=== PATIENT | female | born 1930 | race Caucasian/White ===

== ENCOUNTER → 2016-08-22 15:58 | Outpatient (CLI) | payer MEDICARE, OTHER | END | disposition home or self-care (01) | LOC: D.US 15:58 | DX: R60.0 Localized edema (principal); M79.662 Pain in left lower leg ==

== ENCOUNTER 2018-10-19 08:22 | Inpatient (IN) | payer MEDICARE, OTHER ==
[~2018-10-19] VITALS: Ht 149.9 cm; Wt 44.5 kg
[2018-10-19] MEDS ORDERED: SYNTHROID150 MCG PO (08:39)
[2018-10-19] MEDS ORDERED: TRAZODONE HCL150 MG PO (08:39)
[2018-10-19] MEDS ORDERED: AMBIEN5 MG PO (08:40)
--- NOTE | 2018-10-19 09:13 | NUR ---
URINE SPECIMEN OBTAINED LABELED AT BS AND SENT TO LAB
[2018-10-19 09:17] LABS: BASOPHILS 0.5 % (0-2); EOSINOPHILS 0.7 % (0-7); HEMATOCRIT 38.2 % (36.0-48.0); HEMOGLOBIN 12.9 g/dL (12-16); LYMPHOCYTES 24.2 % (15-50); MCH 30.3 pg (26.0-34.0); MCHC 33.8 g/dL (31.0-37.0); MCV 89.7 fL (80.0-100.0); MEAN PLATELET VOLUME 9.2 fL (7.4-10.4); MONOCYTES 11.6 % (2-11); PLATELET COUNT 264 10x3/uL (130-400); RBC 4.26 10x6/uL (4.00-5.40); RDW 14.8 % (11.5-14.5); WBC 5.5 10x3/uL (4.8-10.8)
[2018-10-19 09:24] LABS: APPEARANCE CLEAR (CLEAR); BILIRUBIN NEGATIVE (NEGATIVE); COLOR YELLOW (YELLOW); GLUCOSE NEGATIVE (NEGATIVE); KETONE NEGATIVE (NEGATIVE); NITRITE POSITIVE (NEGATIVE); PROTEIN NEGATIVE (NEGATIVE); SPECIFIC GRAVITY 1.005 (1.005-1.020); UROBILINOGEN NORMAL (NORMAL)
[2018-10-19 09:27] LABS: BACTERIA MANY /hpf (NONE SEEN); EPITHELIAL CELLS 0-5 /hpf (0-5)
[2018-10-19 09:28] LABS: MUCUS <1+ /lpf (NONE SEEN); RED CELLS - URINE 0-5 /hpf (0-5); WHITE CELLS - URINE 0-5 /hpf (0-5)
[2018-10-19 09:30] LABS: ALBUMIN 3.8 g/dL (3.4-5.0); BILIRUBIN - TOTAL 1.02 mg/dL (0.2-1.3); CALCIUM 9.2 mg/dL (8.5-10.1); CARBON DIOXIDE 32.9 mmol/L (21.0-32.0); CREATININE - SERUM 0.9 mg/dL (0.6-1.3); POTASSIUM - SERUM 3.9 mmol/L (3.5-5.1); PROTEIN - SERUM 7.5 g/dL (6.4-8.2)
[2018-10-19 10:30] VITALS: BP 137/86
--- NOTE | 2018-10-19 11:39 | NUR ---
SL PLACED AND BC'S DRAWN
[2018-10-19 12:15] VITALS: BP 140/81
[2018-10-19 13:45] VITALS: BP 134/82
--- NOTE | 2018-10-19 13:45 | NUR ---
PT TRANSPORTED TO FLOOR STABLE.
--- NOTE | 2018-10-19 13:45 | NUR ---
REPORT CALLED TO JESUSITA ADDISON BY SBAR FORMAT
[2018-10-19 13:58] VITALS: BP 157/75; BMI 19.8
--- NOTE | 2018-10-19 14:17 | NUR ---
PATIENT ADMITTED TO ROOM 2208. ALERT AND ORIENTED X 3. LUNGS CLEAR BILATERALLY IN ALL LEVY. HEART SOUNDS S1 AND S2 HEARD IN ALL LEVY. PACEMAKER PRESENT ON RIGHT SIDE. BOWEL SOUNDS ACTIVE X 4. URGENCY OF URINE. CHIEF COMPLAINT OF UTI. IV TO RFA PATENT WITHOUT REDNESS. BED LOW. CALL BILLINGS AND PERSONAL ITEMS IN REACH. DENIES PAIN. DENIES NEEDS. DAUGHTER AT BEDSIDE. WILL CONTINUE TO MONITOR.
--- NOTE | 2018-10-19 14:44 | NUR ---
REQUESTED AIR BE TURNED OFF IN ROOM. AIR TURNED OFF. REQUESTD AND GIVEN SPRITE AND WATER. DENIES FURTHER NEEDS.
--- NOTE | 2018-10-19 15:32 | NUR ---
SITTING IN BED TALKING WITH CARDIOPULMONARY TECHNICIAN AND EEG TECH AND CARDIOPULMONARY TECHNICIAN AND EEG TECH'S . DENIES PAIN. DENIES NEEDS. WILL CONTINUE TO MONITOR.
--- NOTE | 2018-10-19 17:16 | NUR ---
SITTING IN CHAIR AT BEDSIDE. DENIES NEEDS.
--- NOTE | 2018-10-19 18:32 | NUR ---
ECUATION PROVIDED ON LOVENOX INJECTION. PATIENT REFUSED. PATIENT REFUSED PEPCID. WILL CONTINUE TO MONITOR.
[2018-10-19 20:00] VITALS: BP 104/50
[2018-10-20] VITALS: BP 113/66
--- NOTE | 2018-10-20 03:48 | NUR ---
ASSESSED AT HE BEGINNING OF THE SHIFT. PT IS ALERT BUT A LITTLE CONFUSED. SHE HAS HAD TROUBLE WITH HER TV AND BEEN ASSISTED A COUPLE OF TIME. AT ABOUT 2200 SHE ASKED IF SHE HAD A SLEEPING MED. THIS WAS CONFIRMED BUT SHE DID NOT WANT IT AT THAT TIME. AT ABOUT 0130 SHE WAS IN THE HALLWAY COMPLAINING TO ANOTHER NURSE ABOUT THE CONVERSATION SHE COULD HEAR FROM THE ROOM THAT NURSE WAS IN. AT THIS TIME SHE WAS OFFERED HER SLEEPING MED AND SHE DID ACCEPT IT. LATER SHE WAS BACK OUT IN THE HALLWAY STATING THAT SHE COULD HEAR PEOPLE TALKING IN THE ROOM ACROSS FROM HER AND COULD WE TELL THEM TO BE QUIET. AFTER A WHILE SHE STAYED IN HER ROOM AND WATCHED TV. HER COMPLAINT IS THAT SHE HAS NOT SLEPT IN TWO DAYS. WILL CONTINUE TO MONITOR.
[2018-10-20 04:00] VITALS: BP 116/67
[2018-10-20 06:21] LABS: BASOPHILS 0.7 % (0-2); EOSINOPHILS 1.9 % (0-7); HEMATOCRIT 35.5 % (36.0-48.0); HEMOGLOBIN 11.9 g/dL (12-16); IMMATURE GRANULOCYTES 0.2 % (0-5); MCH 29.9 pg (26.0-34.0); MCHC 33.5 g/dL (31.0-37.0); MCV 89.2 fL (80.0-100.0); MEAN PLATELET VOLUME 9.6 fL (7.4-10.4); MONOCYTES 11.5 % (2-11); NEUTROPHILS 57.7 % (40-80); PLATELET COUNT 239 10x3/uL (130-400); RBC 3.98 10x6/uL (4.00-5.40); RDW 14.8 % (11.5-14.5); WBC 5.9 10x3/uL (4.8-10.8)
[2018-10-20 06:53] LABS: ANION GAP 10.4 mmol/L (8-16); CALCIUM 8.7 mg/dL (8.5-10.1); CARBON DIOXIDE 30.4 mmol/L (21.0-32.0); CREATININE - SERUM 0.8 mg/dL (0.6-1.3); POTASSIUM - SERUM 3.8 mmol/L (3.5-5.1)
--- NOTE | 2018-10-20 08:05 | NUR ---
AAOX4. RESTIN IN BED READING BOOK. "I AM READY TO GO HOME. I FEEL GREAT AND I AM WALKING AND NOT DIZZY." NO S/S OF ACUTE DISTRESS. CL IN PLACE.
[2018-10-20 09:43] VITALS: BP 128/66
[2018-10-20 10:02] VITALS: Ht 149.9 cm; Wt 44.5 kg
--- NOTE | 2018-10-20 13:00 | HP ---
PATIENT: DORON MAX MEDICAL RECORD: [id number] ACCOUNT: [id number] LOCATION:D.MS [id number] : 28 ADMISSION DATE: 10/19/18 PCP: CHAVO CARTER MD HISTORY AND PHYSICAL EXAMINATION DATE OF ADMISSION: 10/19/2018. CHIEF COMPLAINT: Confusion. HISTORY OF PRESENT ILLNESS: This is an 87-year-old female who has lived alone since her a couple of years ago. She has been showing signs of altered mental status and dementia. She lives alone. She easily recognizes me when I come into the room. She states that she woke up this morning like she normally dose, but apparently called her daughters because she knew that she was not feeling right. She really was not sure where she was or what to do about anything. One daughter lives in [place] and another daughter lives here in [facility]. The daughter here drove over to her house and saw that she was confused and worried about what next to do. EMS was called. She was brought to the Emergency Department where her lab was unremarkable except for a urinary tract infection. She is admitted for further treatment and evaluation. PAST MEDICAL HISTORY: She has hypothyroidism, osteoporosis, hyperlipidemia, vitamin D deficiency, sick sinus syndrome, remote history of necrotizing fasciitis to the left arm and hand. PAST SURGICAL HISTORY: Hysterectomy, cholecystectomy, carpal tunnel release, pacemaker placement and multiple surgeries to the hand for salvage from the necrotizing fasciitis. CURRENT MEDICATIONS: Zolpidem 5 mg a day. She takes trazodone 50 mg at bedtime and levothyroxine 150 mcg daily. ALLERGIES: BACTROBAN, BENADRYL, BYSTOLIC, DEMEROL, IBUPROFEN, LEVAQUIN, NITROGLYCERIN, AND SULFA DRUGS. HABITS: Former smoker, maybe drinks occasional wine. No illicit drug use. SOCIAL HISTORY: , retired. She lives alone. FAMILY HISTORY: Both parents are . Further history is unknown. REVIEW OF SYSTEMS: GENERAL: She has had some weight loss over the last few months. HEENT: No particular sinus or allergy problems. RESPIRATORY: No history of asthma or emphysema. CARDIAC: She has a history of sick sinus syndrome with pacemaker. GASTROINTESTINAL: No significant problems there. GENITOURINARY: No significant problems there. MUSCULOSKELETAL: She has some osteoporosis, little arthritis. 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 NEUROLOGIC: No migraines. No seizure disorder. Her memory has definitely been declining. I saw her little over a month ago in my office and she drove herself there, but admitted to me that she forgot how to get there and she had to Google it. In talking to her daughter on the phone today, the patient is repeating herself more and more often as well. Family was concerned that this was due to HISTORY AND PHYSICAL [id number] DORON MAX both zolpidem and trazodone at bedtime and it certainly could PHYSICAL EXAMINATION: VITAL SIGNS: Temperature 98.1, pulse 72, respirations 20, and blood pressure 132/71. GENERAL: She is awake and alert. She is sitting in chair in her hospital room. She has eaten most of her supper. She converses but she also realizes that she is not as sharp as she used to be. SKIN: Warm and dry. HEENT: Grossly within normal limits. NECK: Supple. No JVD or bruit. HEART: Regular rate and rhythm. LUNGS: Clear. ABDOMEN: Soft. EXTREMITIES: No edema. Her left hand is in a contracted state chronically for years due to the necrotizing fasciitis. LABORATORY DATA: Urinalysis shows yellow clear urine with 1+ blood, positive nitrite, trace leukocyte esterase and many bacteria. CT of her head shows no acute process. Chest x-ray shows no acute process. CBC and CMP are both normal. Troponin 0.022. ASSESSMENT: 1. Urinary tract infection. 2. Metabolic encephalopathy. 3. Probable underlying dementia. PLAN: IV Rocephin. Urine culture and blood culture. We will monitor her mental status. Other tests and procedures as warranted. TRANSINT:[id number] Voice Confirmation ID: [id number] DOCUMENT ID: [id number] CHAVO CARTER MD at 1300 CC: [id number] DICTATION DATE: 10/19/181834 EXHIBITS CURATOR: 10/19/181911 [facility] IN [facility] [address] [id number]
[2018-10-20] MEDS ORDERED: MACROBID100 MG PO (14:03)
[2018-10-20 14:17] VITALS: BP 128/71
--- NOTE | 2018-10-20 14:31 | MORECARE ---
CASE MANAGEMENT DISCHARGE SUMMARY PATIENT: DORON MAX UNIT: [id number] ADM DATE: 10/19/18 AGE: 87 : 29 SEX: F ROOM/BED: D.2208 AUTHOR: JUAN PINON PHYSICIAN: REFERRING PHYSICIAN: CHAVO CARTER MD DATE OF SERVICE: 10/20/18 Discharge Plan Patient Name: DORON MAX Facility: [facility]:[place] : 1930 Planned Disposition: Home Anticipated Discharge Date: 10/20/18 Discharge Date: Expected LOS: 1 Initial Reviewer: [email or web address] Initial Review Date: 10/20/2018 Generated: 10/20/18 3:30 pm Comments DCP- Discharge Planning Updated by [email or web address]: Tatum Marques on 10/20/18 1:[address] Patient Name: DORON MAX Admission Status: ER Accout number: [id number] Admission Date: 10-19-2018 : 1930 Admission Diagnosis: Attending: CHAVO CARTER Current LOS: 1 Anticipated DC Date: 10-20-2018 Planned Disposition: Home Primary Insurance: MEDICARE A & B Discharge Planning Comments: CM MET WITH PATIENT AND HER DAUTHER JUNG REGARDING DC PLANNING/NEEDS. STATES SHE IS INDEPENDANT AT HOME AND LIVES ALONE, STATES HOME IS SAFE. DAUGHTER CAN TRANSPORT HOME WHEN DISCHARGED. NO NEEDS IDENTIFIED. CM TO FOLLOW AND ASSIST WITH DC PLANNING/NEEDS. Wrapper Layer: Tatum Marques DCPIA - Discharge Planning Initial Assessment Updated by [email or web address]: Tatum Marques on 10/20/18 2:28 pm * Is the patient Alert and Oriented? Yes * PCP RAUL * [facility] * Preadmission Environment Home Alone * ADLs Independent * Equipment Cane * Verbal permission to speak to the caregivers and representatives has been obtained from the patient. Yes * Community resources currently utilized None * Additional services required to return to the preadmission environment? No * Can the patient safely return to the preadmission environment? Yes * Has this patient been hospitalized within the prior 30 days at any hospital? No Patient Name: DORON MAX Page [id number] at 1431 All edits/amendments must be made on the electronic document DICTATION DATE: 10/20/181429 [place] SEWER: KELLEN 10/20/181429 RPT#: [id number] DC DATE: STATUS: ADM IN [facility] [address] [place] [address] END OF REPORT
--- NOTE | 2018-10-20 16:00 | NUR ---
DC IV WITH TIP INTACT. EDUCATION AND INSTRUCTIONS DONE WITH PT AND DAUGHTER. DAUGHTER CARRIED ALL BELONGINGS. ASSISTED PT OFF FLOOR VIA WC. NO S/S OF ACUTE DISTRESS.
== END 2018-10-20 16:01 | disposition home or self-care (01) | DRG 689 ==
LOC: D.ER 08:22 → D.MS 12:35
PROVIDERS: Emergency Medicine; ADMIT Family Medicine; ATTEND Family Medicine
DX: N39.0 Urinary tract infection, site not specified (principal); G93.41 Metabolic encephalopathy; E78.5 Hyperlipidemia, unspecified; M81.0 Age-related osteoporosis without current pathological fracture